=== PATIENT | male | born 1975 | race Two or more races ===

== ENCOUNTER 2017-11-19 10:49 | Emergency (ER) | payer MEDICAID, OTHER ==
[~2017-11-19] VITALS: Ht 185.4 cm; Wt 87.1 kg
[2017-11-19 12:28] VITALS: BP 135/87
== END 2017-11-19 12:46 | disposition home or self-care (01) ==
LOC: ER 10:53
DX: S92.901D Unspecified fracture of right foot, subsequent encounter for fracture with routine healing (principal); X58.XXXD Exposure to other specified factors, subsequent encounter